=== PATIENT | male | born 1985 | race Caucasian/White ===

== ENCOUNTER 2019-09-20 16:39 | Outpatient (REF) | payer OTHER, SELFPAY ==
[2019-09-22 09:42] LABS: PSA, Screening 0.5 ng/ml (0-2.5)
== END 2019-09-20 16:59 ==
LOC: NCHCN 16:39
PROVIDERS: PCP Nurse Practitioner Family; Visit Provider Nurse Practitioner Family
DX: Z12.5 Encounter for screening for malignant neoplasm of prostate (principal); Z80.42 Family history of malignant neoplasm of prostate; M54.5 Low back pain
CPT/HCPCS: 84153

== ENCOUNTER 2022-12-24 15:58 | Outpatient (REF) | payer MEDICAID, SELFPAY ==
[2022-12-24 16:16] LABS: Calculated LDL 128 mg/dL (<100); Cholesterol 202 mg/dL (<200); HDL Cholesterol 51 mg/dL (40-60); Triglyceride 119 mg/dL (<150)
[2022-12-24 23:21] LABS: PSA, Screening 0.6 ng/mL (<=2.5)
[2022-12-25 09:15] LABS: HIV-1/2 Ag & Ab Screen Negative (Negative)
[2022-12-25 09:34] LABS: Hepatitis C Ab w Rflx HCV PCR Negative (Negative)
== END 2022-12-24 15:59 | disposition home or self-care (01) ==
LOC: NCHCN 15:58
PROVIDERS: PCP Nurse Practitioner Family; Visit Provider Nurse Practitioner Family
DX: R51.9 Headache, unspecified (principal); Z87.891 Personal history of nicotine dependence; R39.89 Other symptoms and signs involving the genitourinary system; Z12.5 Encounter for screening for malignant neoplasm of prostate; Z13.220 Encounter for screening for lipoid disorders; Z11.4 Encounter for screening for human immunodeficiency virus [HIV]; Z00.00 Encounter for general adult medical examination without abnormal findings; Z11.59 Encounter for screening for other viral diseases; Z80.42 Family history of malignant neoplasm of prostate
CPT/HCPCS: 80061; 84153; 86803; 87389

== ENCOUNTER 2023-12-26 16:19 | Outpatient (REF) | payer MEDICAID, SELFPAY ==
[2023-12-29 10:28] LABS: PSA, Screening 0.4 ng/mL (<=2.5)
== END 2023-12-26 16:20 | disposition home or self-care (01) ==
LOC: NCHCN 16:19
PROVIDERS: PCP Nurse Practitioner Family; Visit Provider Nurse Practitioner Family
DX: Z80.42 Family history of malignant neoplasm of prostate (principal)
CPT/HCPCS: 84153